=== PATIENT | male | born 1975 | race Caucasian/White ===

== ENCOUNTER → 2023-07-11 09:40 | Outpatient (CLI) | payer OTHER, SELFPAY ==
[2023-07-15 13:12] LABS: Pancreatic Elastase, Fecal <50 (>200)
== END ==
PROVIDERS: PCP Nurse Practitioner Family; Visit Provider Nurse Practitioner
DX: K90.9 Intestinal malabsorption, unspecified (principal); Z87.19 Personal history of other diseases of the digestive system
CPT/HCPCS: 82656

== ENCOUNTER 2023-11-22 09:20 | Outpatient (CLI) | payer OTHER, SELFPAY ==
--- NOTE | 2023-11-22 09:29 | NM_ITS ---
FINAL REPORT TECHNIQUE: 0.52 Millicuries of technetium 99m sulfur colloid was ingested with two whole eggs, 2 pieces of toast and water. CLINICAL HISTORY: DYSPEPSIA 9:45AM 0.52 MCI TC SULFUR COLLOID INJ INTO 2 WHOLE EGGS, 2 PC OF TOAST AND WATER FINDINGS: GASTRIC EMPTYING SCAN Static images show normal emptying of the stomach into the small bowel. Based on the time activity curve, the estimated half-emptying time is120 minutes. IMPRESSION: Somewhat elevated gastric emptying study. Reviewed, Interpreted and Dictated by Ronnell Nolan III, MD Transcribed by Mar Hernandez Authenticated and [facility]
[2023-11-22] MEDS: TC99M SULF.COLLOID;1 DOSE (UP TO 20 MCI) IV (09:48)
== END 2023-11-22 23:59 ==
LOC: RAD 09:21
PROVIDERS: PCP Nurse Practitioner Family; Visit Provider Nurse Practitioner Family
DX: K30 Functional dyspepsia (principal)
CPT/HCPCS: 78264; A9541

== ENCOUNTER 2023-12-02 10:45 | Outpatient (CLI) | payer OTHER, SELFPAY ==
--- NOTE | 2023-12-02 10:47 | CA_ITS ---
APPROVED REPORT EXAM: Comprehensive 2D, Doppler, and color-flow Echocardiogram Professional System Administrator: IBETH Collazo, RVS Ht: 5 ft 6 in Wt: 187lbs BSA: 1.94 BP: 128/74 mmHg Indications: HTN, HLD, DM, Palpitations 2D Dimensions Left Atrium 2.99 cm LA Volume 43.30 mL LA Volume Index 21.80 mL/m2 (M/F) 16-34 M-Mode Dimensions RVDd 1.73 cm (0.9-2.6) LA Diam 3.71 cm (1.9-4.0) LVDd 6.28 cm (3.5-5.7) LVDs 4.51 cm (3.5-5.7) IVSd 0.76 cm (0.6-1.1) PWd 0.93 cm (0.6-1.1) EF (Teich) 53.50% EPSs 0.65 cm FS 28.20% EDV (Teich) 199.70 mL TAPSE 2.38 (<1.7) ESV (Teich) 92.90 mL LV Diastology E Decel Time 163 (160-240 msec) E/A Ratio 1.26 MED A' 7.40 cm/s LAT A' 9.30 cm/s Aortic Valve VERNON Index 1.47 cm2/m2 AoV Peak Sudarshan. 112.0 (50-130 cm/s) AO Peak GR. 5.00 mmHg AO Mean GR. 2.50 (<5 mmHg) AO VTI 23.6 (18-25 cm) VERNON (VTI) 2.92 (2.5-4.5 cm2) Mitral Valve MV A Velocity 57.0 (40-130 cm/s) E/A Ratio 1.26 MV Mean Gr. 1.00 (<2mmHg) Pulmonary Valve PV Peak Velocity 86.0 (50-150 cm/s) Left Ventricle The left ventricle is normal size. The left ventricular systolic function is normal. The left ventricular ejection fraction is within the normal range. There is normal left ventricular wall thickness. There is normal LV segmental wall motion. The left ventricular diastolic function is normal. LVEF is 55%. Right Ventricle The right ventricle is normal size. The right ventricular systolic function is normal. Atria The left atrium size is normal. The right atrium size is normal. There is no Doppler evidence of interatrial shunt. Aortic Valve The aortic valve opens well. There is no aortic valvular stenosis. No aortic regurgitation is present. Mitral Valve The mitral valve is normal in structure. No evidence of mitral valve stenosis. There is no mitral valve regurgitation noted. Tricuspid Valve The tricuspid valve leaflets are thin and pliable. Trace tricuspid regurgitation. There is insufficient TR jet to estimate RVSP. Pulmonic Valve The pulmonary valve is normal in structure. Trace pulmonic regurgitation. Great Vessels The aortic root is normal in size. The ascending aorta is normal in size. IVC is normal in size and collapses >50% with inspiration. Pericardium There is no pericardial effusion. Other Information Study Quality: Fair Conclusion Normal biventricular systolic function. No significant valvular stenosis or regurgitation. Electronically signed by : Akosua Cramer MD 12/06/2023 21:48:59
== END 2023-12-02 23:59 ==
LOC: RT 10:46
PROVIDERS: PCP Nurse Practitioner Family; Visit Provider Nurse Practitioner Family
DX: R00.2 Palpitations (principal); E11.9 Type 2 diabetes mellitus without complications; Z87.19 Personal history of other diseases of the digestive system; Z79.84 Long term (current) use of oral hypoglycemic drugs
CPT/HCPCS: 93270; 93306

== ENCOUNTER 2024-01-06 08:54 | Outpatient (CLI) | payer OTHER, SELFPAY ==
[2024-01-06] VITALS (7 sets, daily range): BP systolic 114–162; BP diastolic 54–98; PULSE 60–72; RESP 16–18; TEMP 36.3; O2SAT 98–99; BMI 32.8
--- NOTE | 2024-01-06 08:54 | CT_ITS ---
APPROVED REPORT Instrument/Control Technician: CLINICAL INDICATION Chest Pain TECHNIQUE Image Acquisition: A 128 slice MDCT scanner ([employer]) was used for data acquisition. A noncontrast coronary calcium scan was performed. A CT attenuation threshold of 130 Hounsfield units (HU) was used for the detection of calcium in contiguous voxels of 1 sq mm in area to be counted as individual lesions. Bolus tracking in the ascending aorta with a threshold of 180 HU was performed. Immediately afterwards, ECG synchronized cardiac CT was then performed from the cardiac base to apex using retrospective gating with ECG tube current modulation. A total of 85 mL of Isovue 370 mg/mL contrast medium was administered at 5 mL/sec followed by a saline flush using a biphasic injection protocol. A tube voltage of 120 KVp was used. The patient received the following medications prior to the cardiac CT. 10 mg of intravenous metoprolol 0.8 mg of sublingual nitroglycerin The average heart rate at the time of acquisition was 65 bpm and regular. Image Reconstruction Transaxial images were reconstructed at 0.67 mm slide thickness. Data was reviewed interactively on an advanced workstation capable of 2 and 3-dimensional displays in all conventional reconstruction formats, including multiplanar reformations, maximum intensity projections, curved multiplanar reformations, and volume rendered reconstructions. When applicable, selected routine images describing the relevant coronary anatomy and pathology were saved and sent to PACS. Complications None Technical Quality Overall image quality was good. Coronary artery opacification was adequate. Total DLP (Dose-Length Product) is 1748.9 mGy-cm. The reported value represents the total of one or more individual components during the CT acquisition of this date and at this time, and as such, the same value may appear in more than one CT report depending on the interpreting/reporting physicians. COMPARISON None FINDINGS CT Coronary Calcium Scoring LMA (Left Main Artery) = 0 LAD (Left Anterior Descending) = 0 LCX (Left Coronary Circumflex) = 0 RCA (Right Coronary Artery) = 0 Total Calcium Score = 0 using the AJ-130 method. The interpretation of the calcium heart score is based on the following continuum*: 0 = no calcified plaque detected (risk of coronary artery disease is very low ??? less than 5%) 1-10 = calcium detected in extremely minimal levels (risk of coronary diseases is still low ??? less than 10%) 11-100 = mild levels of plaque detected with certainty (mild or minimal narrowing of heart arteries is likely) 101-400 = definite,at least moderate levels of plaque detected (relatively high risk of a heart attack within 3-5 years) >401-999 = extensive levels of plaque detected (high risk of heart attack, high levels of vascular disease are present, high likelihood of at least one significant coronary narrowing) *The calcium heart score quantifies the burden of coronary calcification/plaque in the coronary arteries. The calcium heart score is not able to evaluate the presence or burden of non-calcified (i.e. soft) plaque. There is no identifiable calcification in the aortic valve, mitral annulus or mitral valve, pericardium, or myocardium. Coronary CT Angiography The coronary arterial system is right dominant. Quantitative Stenosis Grading: Left Main (LM): The left main originates normally from the left sinus of Valsalva. The LM trifurcates into the left anterior descending artery, ramus intermedius, and left circumflex artery. The LM is patent with no evidence of atherosclerosis. Left Anterior Descending (LAD) and Diagonal Branches: The LAD gives off 2 diagonal branch(es). The LAD and its branches are patent with no evidence of atherosclerosis. 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 Ramus-intermedius (RI): The RI is patent. Left Circumflex (LCX) and Obtuse Marginals (OM): The LCX gives off 1 Obtuse Marginal (OM) branch. The LCX and its branches are patent with no evidence of atherosclerosis. Right Coronary Artery (RCA): The RCA originates normally from the right sinus of Valsalva. The RCA gives off a posterior descending artery (PDA) and posterolateral (PL) branches. The RCA and its branches are patent with no evidence of atherosclerosis. Non-Coronary Cardiac Findings: Analysis of the left ventricular (LV) structure and function was performed after 3-D reconstruction of the LV from axial images, with user-corrected automatic contouring for assessment of LV volumes and user-defined reconstruction from oblique planes for measurement of 3-D cardiac structure and function. -The left ventricle systolic function is normal. -There is no left atrial appendage filling defect. Two right pulmonary veins and two left pulmonary veins drain normally into the left atrium. -No pericardial thickening or calcification. -Central and branch pulmonary arteries in the [id number] are unremarkable. -Thoracic aorta within the visualized thoracic aortic-branches in the [id number] is unremarkable. Extracardiac Structures No significant extra-cardiac findings. Note, however, that this study is focused on the cardiac findings. IMPRESSION -Absence of coronary calcification with an Agatston score = 0 using the AJ-130 method. -No evidence of significant flow-limiting atherosclerosis of the coronary arteries. 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 -CAD-RADS 0. Management recommendations per ACC/AHA guidelines*, as clinically appropriate. *Recommendations: CAD RADS 0: Reassurance. Consider non-atherosclerotic causes of chest pain. CAD RADS 1: Consider non-atherosclerotic causes of chest pain. Consider preventive therapy and risk factor modification. CAD RADS 2: Consider non-atherosclerotic causes of chest pain. Consider preventive therapy and risk factor modification, particularly for patients with nonobstructive plaque in multiple segments. CAD RADS 3: Consider further functional testing. Consider symptom-guided anti-ischemic and preventive pharmacotherapy as well as risk factor modification per published guideline statements. CAD RADS 4A: Consider further functional testing or invasive coronary angiography with revascularization per published guideline statements. Consider symptom-guided anti-ischemic and preventive pharmacotherapy as well as risk factor modification per published guideline statements. CAD RADS 4B: Invasive coronary angiography recommended with revascularization per published guideline statements. Consider symptom-guided anti-ischemic and preventive pharmacotherapy as well as risk factor modification per published guideline statements. CAD RADS 5: Consider invasive angiography and/or viability assessment with revascularization per published guideline statements. Consider symptom-guided anti-ischemic and preventive pharmacotherapy as well as risk factor modification per published guideline statements. CRITICAL RESULT None COMMUNICATION Per this written report The coronary and cardiac findings of this CCTA were reviewed, reported, and signed by Javad Cramer MD (Director Payer) Conclusion Electronically signed by : Akosua Cramer MD 01/10/2024 11:11:12
[2024-01-06 09:43] LABS: Chloride 103 mmol/L (98-107)
[2024-01-06 09:44] LABS: POC Glucose,Bedside 103 (70-110)
[2024-01-06 09:44] LABS: Sodium 138 mmol/L (136-145)
[2024-01-06 09:47] LABS: Blood Urea Nitrogen 15 mg/dl (9-20); Calcium 9.3 mg/dl (8.4-10.2); Carbon Dioxide 30 mmol/L (22.0-30.0); Creatinine Clearance Estimated 120 mL/min (50-200); Estimated Glomerular Filt Rate 80 ml/min (>60); GFR (African American) 97 ML/MIN (>60); Glucose 117 mg/dl (74-100)
[2024-01-06] MEDS: NITROGLYCERIN 0.4MG SL TABLET 0.800000000000000044 MG SL (10:25)
[2024-01-06] MEDS: METOPROLOL TARTRATE 5MG/5ML VIAL *IVABRADINE+METOPROLOL REGIMINE 5 MG IV ×2 (10:30→10:35)
[2024-01-06] MEDS: IOPAMIDOL-370 (76%);100ML BOTTLE 85 ML IV (10:43)
[2024-01-06] MEDS: 0.9 % SODIUM CHLORIDE 50 ML VIAL IV (10:43)
[2024-01-06] MEDS: SODIUM CHLORIDE 0.9% 10ML SYR (RAD ONLY) 10 ML IV (10:43)
== END 2024-01-06 11:05 | disposition home or self-care (01) ==
PROVIDERS: PCP Nurse Practitioner Family; Visit Provider Nurse Practitioner Family
DX: R00.2 Palpitations (principal); R53.83 Other fatigue; E11.9 Type 2 diabetes mellitus without complications
CPT/HCPCS: 75571; 75574; 80048; 82962; Q9967

== ENCOUNTER 2024-04-19 16:14 | Outpatient (CLI) | payer OTHER, SELFPAY ==
[2024-04-19 17:56] LABS: Ferritin 19.6 ng/ml (17.9-464)
== END 2024-04-19 23:59 | disposition home or self-care (01) ==
LOC: LAB 16:14
PROVIDERS: PCP Nurse Practitioner Family; Visit Provider Specialist
DX: E83.10 Disorder of iron metabolism, unspecified (principal)
CPT/HCPCS: 36415; 82728

== ENCOUNTER 2024-05-18 15:22 | Emergency (ER) | payer OTHER, SELFPAY ==
[2024-05-18] VITALS (8 sets, daily range): BP systolic 128–138; BP diastolic 74–97; PULSE 64–80; RESP 13–16; TEMP 36.5–36.9; O2SAT 96–98; BMI 31.9
--- NOTE | 2024-05-18 15:30 | HMH.EDGENADL ---
Discharge Plan Disposition Patient Disposition: Home, Self-Care Condition: Good Prescriptions Prescriptions: No Action aspirin 81 mg tablet,chewable 1 tab PO DAILY dexlansoprazole [Dexilant] 60 mg capsule,biphase delayed releas 60 mg PO DAILY Patient Comments: TAKE 1 CAPSULE BY MOUTH ONCE A DAY. losartan 50 mg tablet 50 mg PO DAILY Patient Comments: TAKE 1 TABLET BY MOUTH ONCE A DAY. mupirocin 2 % ointment 1 applic topical DAILY Patient Comments: APPLY A SMALL AMOUNT TO THE AFFECTED AREA THREE TIMES DAILY (DME) OneTouch Ultra Test Strip See Rx Instructions .ROUTE .MEDSUPPLY Qty: 10 Patient Comments: CHECK TWICE DAILY Rx Instructions: As directed (DME) lancets [AppMesh Delica Plus Lancet] 33 gauge misc See Rx Instructions .ROUTE .MEDSUPPLY Qty: 100 Rx Instructions: As directed nystatin [Nystop] 100,000 unit/gram powder 100,000 unit topical DAILY Patient Comments: APPLY TO THE AFFECTED AREA(S) BY TOPICAL ROUTE 2 TIMES PER DAY Xigduo XR 5-1,000 mg tablet, IR - ER, biphasic 24hr 5 - 1,000 tab PO DAILY latanoprost 0.005 % drops 1 drp Eye-Both BID Patient Comments: INSTILL 1 DROP IN BOTH EYES AT BEDTIME testosterone [AndroGel] 20.25 mg/1.25 gram (1.62 %) gel in metered-dose pump 4 pump topical DAILY Patient Comments: APPLY FOUR PUMPS TO SKIN DAILY DIRECTED. metoprolol succinate 50 mg tablet extended release 24 hr 50 mg PO DAILY epinephrine 0.3 mg/0.3 mL auto-injector 0.3 ml IM ONCE PRN (Reason: allergies) Patient Comments: INJECT 1 PEN INJECTOR INTRAMUSCULARLY NEEDED INJECT INTRAMUSCULARLY INTO OUTER THIGH FOR SEVERE ALLERGIC REACTION, CALL 911 AFTER USE fexofenadine [Marta Allergy] 60 mg tablet 60 mg PO HS cholecalciferol (vitamin D3) 1,250 mcg (50,000 unit) capsule 1,250 mcg PO WEEKLY Patient Comments: TAKE ONE CAPSULE BY MOUTH EVERY WEEK. Creon 36,000-114,000- 180,000 unit capsule,delayed release(DR/EC) 1 cap PO QID Qty: 120 5RF Rx Instructions: administer with meals and/or snacks, decrease fatty food intake (DME) lancing device with lancets [AppMesh Delica Plus Lanc Dev] Kit See Rx Instructions .ROUTE .MEDSUPPLY Qty: 1 Patient Comments: USE DIRECTED Rx Instructions: As directed Referrals Follow up/Referrals: Marian Estrella APRN [Primary Care Provider] - See instructions Activity Restrictions/Add. Instructions Additional Instructions/Restrictions: As we discussed, your labs and CT scans did not show any abnormal findings with the exception of some evidence that you may have gotten dehydrated. Given that you have had no further episodes of the confusion that brought you in today, you are stable for discharge at this time. Please follow-up with your primary care doctor. I recommend you check your blood sugar throughout the day and make sure you are having protein and fruit throughout the day as well as staying hydrated. Please return with any new or worsening symptoms. Clinical Impressions Clinical Impression: Altered awareness, transient Print Language Print Language: Citizen Of [place] Discharge ED Provider: Derrell Greer General Adult HPI General Chief complaint: Neuro Symptoms/Deficit Stated complaint: possible stroke Time Seen by Provider: 05/18/24 15:30 History of Present Illness HPI narrative: He presents with a chief complaint of blurry vision that [place] around 1 PM [place] He describes his eyes as feeling foggy when he put on his sunglasses. He also reports shuffling his feet and tripping multiple times, including going into PCP office and in the parking lot. He denies any weakness or numbness in his hands and has no history of migraines. He has a history of diabetes and reports a blood sugar level of 120 upon waking up, which is normal for him. He had a glass of regular tea in the morning, and his blood sugar was 200 at [place]. He is on blood pressure medication and takes a baby aspirin daily. He did not take an additional aspirin today. He has a known disc bulge in his neck and has been engaging in physical activity, such as lifting a hundred-pound calf. He denies any strenuous activity that he has not done in the past 10 days. He also has a history of sleep apnea but no known neurological issues. His mother has had multiple mini-strokes, and his sister experiences grand mal seizures. Additional details: - He broke the door handle off his truck while trying to get in. - He has been under stress, dealing with sick calves and visiting the vet all morning. - He has not eaten food today, only having a glass of regular tea. Please note that above description of symptoms, in this electronic medical record under categorization of recalled from ER triage doctor by RN are reflective of an initial nursing assessment, however, is not reflective of my full history and physical exam that was personally taken and clarified. Consequentially, this preceding description of symptoms, which may include the patient's categorized chief complaint in the EMR, do not reflect my personal clinical impression, and the ultimate description of history of present illness and patient stated complaints should be deferred to this section of the note. Unless stated otherwise or congruent with this section of the note, additional signs, symptoms, or incongruence should be interpreted as inaccurate with my clinical impression. Related Data Home Medications ?Medication ?Instructions ?Recorded ?Confirmed aspirin 81 mg chewable tablet 1 tab PO DAILY 07/07/23 04/19/24 blood sugar diagnostic ([employer] #10 ea 07/07/23 04/19/24 Ultra Test strips) dapagliflozin propaned 5 5 - 1,000 tab PO DAILY 07/07/23 04/19/24 mg-metformin ER 1,000 mg tablet, ext rel 24hr (Xigduo XR) dexlansoprazole 60 mg 60 mg PO DAILY 07/07/23 04/19/24 capsule,biphase delayed release (Dexilant) lancets 33 gauge ([employer] Joaquinica #100 ea 07/07/23 04/19/24 Plus Lancet) latanoprost 0.005 % eye drops 1 drp Eye-Both BID 07/07/23 04/19/24 losartan 50 mg tablet 50 mg PO DAILY 07/07/23 04/19/24 metoprolol succinate 50 mg 50 mg PO DAILY 07/07/23 04/19/24 tablet,extended release 24 hr mupirocin 2 % topical ointment 1 applic topical DAILY 07/07/23 04/19/24 nystatin 100,000 unit/gram topical 100,000 unit topical DAILY 07/07/23 04/19/24 powder (Nystop) testosterone (AndroGel) 4 pump topical DAILY 07/07/23 04/19/24 epinephrine 0.3 mg/0.3 mL 0.3 ml IM ONCE PRN allergies 11/17/23 04/19/24 injection, auto-injector lancing device with lancets kit #1 ea 01/26/24 04/19/24 (AppMesh Delica Plus Lancing Device kit) cholecalciferol (vitamin D3) 1,250 1,250 mcg PO WEEKLY 02/27/24 04/19/24 mcg (50,000 unit) capsule fexofenadine 60 mg tablet (Marta 60 mg PO HS 02/27/24 04/19/24 Allergy) Previous Rx's ?Medication ?Instructions ?Recorded pghwfq-dzqduubu-ojigwor 1 cap PO QID EPI #120 caps 02/27/24 36,000-114,000-180,000 unit capsule,delay rel (Creon) Allergies Allergy/AdvReac Type Severity Reaction Status Date / Time omeprazole [From Prilosec] Allergy Mild Hives Verified 04/19/24 14:46 [facility] Disclaimer: The information contained in this section may have been updated after the patient was seen, as this information can be updated by other users. Medical History (Updated 05/18/24 @ 19:34 by Derrell Greer MD) Fatigue JESSICA (obstructive sleep apnea) Hyperlipidemia Palpitations Hypertension Bulging of cervical intervertebral disc Pneumonia due to COVID-19 virus Glaucoma GERD (gastroesophageal reflux disease) Diabetes Surgical History Hx of nasal septoplasty Hx of cholecystectomy Family History Brother Asthma Hyperlipidemia Hypertension Mother Cancer Hyperlipidemia Hypertension Stroke Sister Hypertension Stroke Thyroid disorder Social History Smoking Status: Never smoker second hand exposure: No alcohol intake: never substance use type: denies use current occupational status: employed Travel in the last 8 weeks: None adopted: No caregiver/support person: No foster care: No household members: spouse housing: house lives independently: Yes marital status: ROS Obtained: Yes other As per HPI Physical Exam General General appearance: alert and in no apparent distress Head Head exam: atraumatic and normocephalic Eye Eye exam: Present normal appearance Neck Neck exam: Present normal inspection Chest Chest inspection: Present normal inspection and symmetric chest wall rise Respiratory Respiratory exam: Present normal lung sounds bilaterally; Absent respiratory distress Cardiovascular Cardiovascular exam: Present regular rate and normal rhythm Abdominal Exam Abdominal exam: Present soft Neurological Exam Neurological exam: Present alert and oriented X3 Expanded Neurological Exam Patient oriented to: Present person, place and time Speech: Present fluid speech Cranial nerves: Normal: EOM function (II, III, IV, ), facial sensation (V), facial palsy (VII), spinal accessory function (XI) and tongue deviation (XII) Cerebellar function: Normal: finger to nose and heel to stevenson Cerebellar function: normal gait Motor strength - LUE: 5/5 Motor strength - RUE: 5/5 Motor strength - LLE: 5/5 Motor strength - RLE: 5/5 Upper motor neuron exam: Normal: sultana neglect Psychiatric Psychiatric exam: Present normal affect and normal mood Skin Skin exam: Present warm and dry Medical Decision Making Medical Records Medical records reviewed: Yes I reviewed the patient's medical records. Carlos Inquiry Pt receiving controlled substance: No Vital Signs: 05/18/24 15:22 05/18/24 16:14 05/18/24 16:30 Temperature 98.5 F Temperature Source Oral Pulse Rate 74 73 Pulse Rate [Left Radial] 79 Respiratory Rate 13 Blood Pressure 132/76 128/79 Blood Pressure [Right Arm] 137/84 Blood Pressure Mean [Right Arm] 101 Blood Pressure Source Blood Pressure Position 02 Sat by Pulse Oximetry 97 98 96 Oxygen Delivery Method Room Air 05/18/24 17:00 05/18/24 17:30 05/18/24 18:31 Temperature Temperature Source Pulse Rate 64 79 73 Pulse Rate [Left Radial] Respiratory Rate Blood Pressure 132/82 135/97 H 128/74 Blood Pressure [Right Arm] Blood Pressure Mean [Right Arm] Blood Pressure Source Blood Pressure Position 02 Sat by Pulse Oximetry 97 97 98 Oxygen Delivery Method 05/18/24 19:00 05/18/24 19:35 Temperature 97.7 F Temperature Source Oral Pulse Rate 67 80 Pulse Rate [Left Radial] Respiratory Rate 16 Blood Pressure 135/79 138/77 Blood Pressure [Right Arm] Blood Pressure Mean [Right Arm] Blood Pressure Source Automatic Cuff Blood Pressure Position Sitting 02 Sat by Pulse Oximetry 98 Oxygen Delivery Method Lab Data Lab Results 05/18/24 15:26: WBC 7.6, RBC 4.99, Hgb 15.9, Hct 50.3, MCV 100.9 H, MCH 31.8 H, MCHC 31.5 L, RDW 13.2, Plt Count 208, MPV 8.1, Neut % (Auto) 63.0, Lymph % (Auto) 24.4, Mills % (Auto) 6.4, Eos % (Auto) 5.0, Baso % (Auto) 1.1, Neut # (Auto) 4.8, Lymph # (Auto) 1.9, Mills # (Auto) 0.5, Eos # (Auto) 0.4, Baso # (Auto) 0.1, PT 10.3, INR 0.91, Sodium 139, Potassium 3.9, Chloride 105, Carbon Dioxide 25, Anion Gap 12.9, BUN 18, Creatinine 1.00, Estimated Creat Clear 117, Estimated GFR 80, Est GFR ( Amer) 97, Glucose 138 H, Calcium 9.3, Magnesium 1.9, Total Bilirubin 0.7, AST 51, ALT 94 H, Alkaline Phosphatase 91, Troponin I < 0.01, Total Protein 7.3, Albumin 4.5, Globulin 2.8, Albumin/Globulin Ratio 1.6 05/18/24 15:40: VBG pH 7.34, VBG pCO2 44.3, VBG pO2 39.0, VBG HCO3 23.4, VBG Total CO2 24.7, VBG O2 Saturation 69.3, VBG Base Excess -2.4, VBG Lactic Acid 2.5 H 05/18/24 18:30: Troponin I < 0.01 05/18/24 15:26 05/18/24 15:26 Orders (Tests/Meds): ED MEDICATIONS Discontinued Medications Generic Name Dose Route Start Last Admin Trade Name Freq PRN Reason Stop Dose Admin Sodium Chloride 1,000 mls @ 999 mls/hr 05/18/24 15:31 05/18/24 16:11 Sod Chlor 0.9% 1000ml Bag IV 05/18/24 16:31 999 mls/hr .Q1H1M ONE Administration Iopamidol 80 ml 05/18/24 16:02 05/18/24 16:03 Iopamidol-370 (76%);100ml Bottle IV 05/18/24 16:03 80 ml ONCE ONE Administration Sodium Chloride 10 ml 05/18/24 16:02 05/18/24 16:03 Sodium Chloride 0.9% 10ml Syr (Rad Only) IV 05/18/24 16:03 10 ml ONCE ONE Administration Sodium Chloride 50 ml 05/18/24 16:02 05/18/24 16:02 0.9 % Sodium Chloride 50 Ml Vial IV 05/18/24 16:03 50 ml ONCE ONE Administration ORDERS Category Date Time Status CT angio head Stat Cat Scan 05/18/24 15:[address] angio neck Stat Cat Scan 05/18/24 15:[address] head/brain wo con Stat Cat Scan 05/18/24 15:31 Completed CBC w/Auto Diff [Complete Blood Count Auto Diff] Stat Lab 05/18/24 15:26 Completed CMP [Comprehensive Metabolic Panel] Stat Lab 05/18/24 15:26 Completed MAG [Magnesium] Stat Lab 05/18/24 15:26 Completed PT INR [Prothrombin Time INR] Stat Lab 05/18/24 15:26 Completed Troponin I Q3H Lab 05/18/24 15:26 Completed Troponin I Q3H Lab 05/18/24 18:30 Completed VBG [Venous Blood Gas] Stat RT 05/18/24 15:40 Completed Medical Decision Narrative: Patient with history and exam per above presenting for evaluation of transient altered mental status, confusion, reported gait abnormality Diagnoses considered include stroke, TIA, hypoglycemia, hypoxemia, hypovolemia, hypotension, ACS, among others. Patient exhibits no neurologic deficits at this time, patient's family member feels patient's symptoms have improved. Patient denies any acute complaints. ED workup and treatment included: ED MEDICATIONS Discontinued Medications Generic Name Dose Route Start Last Admin Trade Name Freq PRN Reason Stop Dose Admin Sodium Chloride 1,000 mls @ 999 mls/hr 05/18/24 15:31 05/18/24 16:11 Sod Chlor 0.9% 1000ml Bag IV 05/18/24 16:31 999 mls/hr .Q1H1M ONE Administration Iopamidol 80 ml 05/18/24 16:02 05/18/24 16:03 Iopamidol-370 (76%);100ml Bottle IV 05/18/24 16:03 80 ml ONCE ONE Administration Sodium Chloride 10 ml 05/18/24 16:02 05/18/24 16:03 Sodium Chloride 0.9% 10ml Syr (Rad Only) IV 05/18/24 16:03 10 ml ONCE ONE Administration Sodium Chloride 50 ml 05/18/24 16:02 05/18/24 16:02 0.9 % Sodium Chloride 50 Ml Vial IV 05/18/24 16:03 50 ml ONCE ONE Administration ORDERS Category Date Time Status CT angio head Stat Cat Scan 05/18/24 15:[address] angio neck Stat Cat Scan 05/18/24 15:[address] head/brain wo con Stat Cat Scan 05/18/24 15:31 Completed CBC w/Auto Diff [Complete Blood Count Auto Diff] Stat Lab 05/18/24 15:26 Completed CMP [Comprehensive Metabolic Panel] Stat Lab 05/18/24 15:26 Completed MAG [Magnesium] Stat Lab 05/18/24 15:26 Completed PT INR [Prothrombin Time INR] Stat Lab 05/18/24 15:26 Completed Troponin I Q3H Lab 05/18/24 15:26 Completed Troponin I Q3H Lab 05/18/24 18:30 Completed VBG [Venous Blood Gas] Stat RT 05/18/24 15:40 Completed Labs were independently interpreted by me, significant for no acute findings Imaging was independently visualized and interpreted by me, significant for no acute findings Please refer to radiology report for full details. Patient had no further symptoms upon repeat evaluation. He was able to tolerate p.o. intake. Patient and family member expressed comfort with discharge at this time. He will require outpatient follow-up and already takes aspirin 81 mg. I believe symptoms are most likely attributable to hypoglycemia in the setting of 2 skipped meals today as well as working outside in the heat. TIA additionally on the differential however less likely based on history of present illness. I discussed my clinical impression with patient and answered all questions. At this time, the evidence for any other entities in the differential is insufficient to warrant any further testing or ED observation. This was explained to the patient. The patient was advised that persistent or worsening symptoms require further evaluation. Critical Care Critical Care Time Critical Care Time: No
--- NOTE | 2024-05-18 15:31 | CT_ITS ---
FINAL REPORT TECHNIQUE: Thin-section axial CT with IV contrast supplemented with multi planar reconstruction under CT angiogram protocol was performed of the neck. This study was performed technique to keep radiation doses as low as reasonably achievable, (ALARA). NASCET criteria was utilized during interpretation. CLINICAL HISTORY: transient AMS, confusion, gait abnormality, resolv COMPARISON: None FINDINGS: Aortic arch: Arch shows no significant narrowing. Great vessel origins are widely patent. Right carotid: No significant stenosis is seen at the cervical common or internal carotid artery. Left carotid: No significant stenosis is seen at the cervical common or internal carotid artery. Vertebrals: The right vertebral artery is dominant. No significant stenosis is present. IMPRESSION: No evidence of significant stenosis or major branch occlusion. Reviewed, Interpreted and Dictated by Ronnell Nolan III, MD Transcribed by Jennifer Osullivan Authenticated and [facility]
--- NOTE | 2024-05-18 15:31 | CT_ITS ---
FINAL REPORT CLINICAL HISTORY: transient AMS, confusion, gait abnormality, resolv COMPARISON: None FINDINGS: Axial images of the head were obtained without contrast. Coronal and sagittal reformatted images were also obtained.This study was performed with techniques to keep radiation doses as low as reasonably achievable (ALARA). Individualized dose reduction techniques using automated exposure control or adjustment of mA and/or kV according to the patient's size were employed. There is no evidence of intracranial hemorrhage or mass. The ventricular size is within normal limits. There is no evidence of shift of the midline structures. No abnormal extra axial fluid collection is identified. No skull abnormality is seen on the bone window images. IMPRESSION: No acute intracranial abnormality. Reviewed, Interpreted and Dictated by Ronnell Nolan III, MD Transcribed by Jennifer Osullivan Authenticated and [facility]
--- NOTE | 2024-05-18 15:31 | CT_ITS ---
FINAL REPORT TECHNIQUE: Thin section axial CT with IV contrast supplemented with multiplanar reconstruction under CT angiogram protocol. 3-D reconstructions were performed. This study was performed with techniques to keep radiation doses as low as reasonably achievable (ALARA). Individualized dose reduction techniques using automated exposure control or adjustment of mA and/or kV according to the patient's size were employed. CLINICAL HISTORY: transient AMS, confusion, gait abnormality, resolv COMPARISON: None FINDINGS: The distal vertebral, basilar and distal internal carotid arteries have an unremarkable appearance. No aneurysm is seen. Major intracranial vessels are patent without significant stenosis. IMPRESSION: No major intracranial vascular abnormality identified. Reviewed, Interpreted and Dictated by Ronnell Nolan III, MD Transcribed by Jennifer Osullivan Authenticated and [facility]
[2024-05-18 15:41] LABS: Lactate Venous 2.5 mmol/L (0.4-2.0); VBG Base Excess -2.4 mmol/L (-2.4-2.3); VBG HCO3 23.4 mmol/L (23-30); VBG Oxygen Saturation 69.3 % (50-70); VBG PCO2 44.3 mmol/L (35-51); VBG PH 7.34 mmol/L (7.31-7.41); VBG Total CO2 24.7 mmol/L (23-27)
[2024-05-18 15:44] LABS: Basophils # 0.1 K/mm3 (0-0.2); Basophils % 1.1 % (0.1-2.0); Eosinophils # 0.4 K/mm3 (0.0-0.4); Hematocrit 50.3 % (42.0-52.0); Hemoglobin 15.9 g/dL (14.1-18.0); Lymphocytes # 1.9 K/mm3 (0.7-4.5); Lymphocytes % 24.4 % (10-50); Mean Corpuscular HGB Conc 31.5 g/dL (31.8-35.4); Mean Corpuscular Hemoglobin 31.8 pg (27.0-31.2); Mean Corpuscular Volume 100.9 fl (80-94); Mean Platelet Volume 8.1 fl (7.4-10.4); Monocytes # 0.5 K/mm3 (0.1-1.0); Monocytes % 6.4 % (1.7-9.3); Neutrophils # 4.8 K/mm3 (1.8-7.8); Platelet Count 208 K/mm3 (142-424); Red Blood Count 4.99 M/mm3 (4.60-6.20); Red Cell Distribution Width 13.2 % (11.5-17.5); White Blood Count 7.6 K/mm3 (4.8-10.8)
[2024-05-18 15:47] LABS: Albumin Level 4.5 g/dl (3.5-5.0); Chloride 105 mmol/L (98-107); Potassium 3.9 mmoL/L (3.5-5.1); Sodium 139 mmol/L (136-145)
[2024-05-18 15:49] LABS: Blood Urea Nitrogen 18 mg/dl (9-20); Creatinine Clearance Estimated 117 mL/min (50-200); Estimated Glomerular Filt Rate 80 ml/min (>60); GFR (African American) 97 ML/MIN (>60); Magnesium 1.9 mg/dl (1.6-2.3)
[2024-05-18 15:50] LABS: Alanine Aminotransferase 94 U/L (12-78); Albumin/Globulin Ratio 1.6 (1.1-1.8); Alkaline Phosphatase 91 U/L (38-126); Anion Gap 12.9 mEq/L (5-15); Aspartate Amino Transferase 51 U/L (17-59); Bilirubin,Total 0.7 mg/dl (0.2-1.3); Calcium 9.3 mg/dl (8.4-10.2); Carbon Dioxide 25 mmol/L (22.0-30.0); Globulin 2.8 g/dL (1.3-3.2); Glucose 138 mg/dl (74-100); INR 0.91 (0.9-1.1); Prothrombin Time 10.3 seconds (10.1-12.5); Total Protein,Serum 7.3 g/dl (6.3-8.2)
[2024-05-18] MEDS: 0.9 % SODIUM CHLORIDE 50 ML VIAL IV (16:02)
[2024-05-18 16:03] LABS: Troponin I < 0.01 ng/ml (0.00-0.034)
[2024-05-18] MEDS: IOPAMIDOL-370 (76%);100ML BOTTLE 80 ML IV (16:03)
[2024-05-18] MEDS: SODIUM CHLORIDE 0.9% 10ML SYR (RAD ONLY) 10 ML IV (16:03)
[2024-05-18] MEDS: 0.9 % SODIUM CHLORIDE 1000ML 1,000 ML 999 ML IV (16:11)
--- NOTE | 2024-05-18 18:12 | ECG_ITS ---
APPROVED REPORT Exam: Resting ECG HR:70 bpm ECG Measurements Heart Rate [address] 157 P 52 QRSd 91 QRS 71 QT 400 T 18 QTc 421 Conclusion SINUS RHYTHM INCOMPLETE RIGHT BUNDLE BRANCH BLOCK [90+ ms QRS DURATION, TERMINAL R IN V1/V2, 40+ ms S IN I/aVL/V4/V5/V6] BORDERLINE ECG No STEMI Electronically signed by : ASIF ANDERSON, 05/19/2024 06:49:44
--- NOTE | 2024-05-18 18:15 | PC.NURSE ---
called dietary to obtain a tray
[2024-05-18 19:14] LABS: Troponin I < 0.01 ng/ml (0.00-0.034)
[2024-05-18 19:41] LABS: Reflex Lactic Add Lactic Reflex
== END 2024-05-18 19:41 | disposition home or self-care (01) ==
PROVIDERS: Emergency Provider Emergency Medicine; PCP Nurse Practitioner Family
DX: R41.82 Altered mental status, unspecified (principal); H53.8 Other visual disturbances; E11.39 Type 2 diabetes mellitus with other diabetic ophthalmic complication; H42 Glaucoma in diseases classified elsewhere; I10 Essential (primary) hypertension; E78.5 Hyperlipidemia, unspecified
CPT/HCPCS: 70450; 70496; 70498; 80053; 82803; 83735; 84484; 85025; 85610; 93005; 96360; 99285; J7030; Q9967

== ENCOUNTER 2024-10-03 07:39 | Outpatient (CLI) | payer OTHER, SELFPAY ==
--- NOTE | 2024-10-03 07:40 | CT_ITS ---
FINAL REPORT TECHNIQUE: CT examination of the abdomen and pelvis was performed pre and post intravenous contrast administration using axial images, followed by coronal and sagittal reconstructions. This study was performed with techniques to keep radiation doses as low as reasonably achievable (ALARA). Individualized dose reduction techniques using automated exposure control or adjustment of mA and/or kV according to the patient's size were employed. CLINICAL HISTORY: attention pancreas, patient with EPI COMPARISON: None FINDINGS: CT ABDOMEN AND PELVIS WITH AND WITHOUT CONTRAST: Scarring versus atelectasis is present in the lung bases. There is moderate fatty infiltration of the liver. The gallbladder is surgically absent. The spleen is unremarkable. The adrenals are normal. The pancreas is unremarkable, specifically no evidence of mass or peripancreatic inflammatory change is seen. The kidneys enhance appropriately. Precontrast images demonstrate no nephrolithiasis or significant vascular calcifications. There are a few scattered diverticula present in the descending and sigmoid portions of the colon without evidence of acute inflammatory change. No free fluid or masses identified in the pelvis. IMPRESSION: Moderate fatty infiltration of the liver, gallbladder surgically absent. No evidence of pancreatic mass or peripancreatic inflammatory changes seen. Reviewed, Interpreted and Dictated by Kashmir Diaz MD Transcribed by Jennifer Osullivan Authenticated and [facility]
[2024-10-03 08:00] LABS: Blood Urea Nitrogen 24 mg/dl (9-20); Estimated Glomerular Filt Rate 50 ml/min (>60); GFR (African American) 61 ML/MIN (>60)
[2024-10-03] MEDS: SODIUM CHLORIDE 0.9% 10ML SYR (RAD ONLY) 10 ML IV (08:27)
[2024-10-03] MEDS: IOPAMIDOL-370 (76%);100ML BOTTLE 75 ML IV (08:28)
== END 2024-10-03 23:59 | disposition home or self-care (01) ==
LOC: RAD 07:40
PROVIDERS: PCP Nurse Practitioner Family; Visit Provider Nurse Practitioner Family
DX: K86.81 Exocrine pancreatic insufficiency (principal)
CPT/HCPCS: 36415; 74178; 82565; 84520; Q9967

== ENCOUNTER 2025-03-19 09:37 | Outpatient (CLI) | payer OTHER, SELFPAY ==
--- NOTE | 2025-03-19 09:41 | XR_ITS ---
FINAL REPORT CLINICAL HISTORY: Left Knee Pain FINDINGS: LEFT KNEE 3 views of the left knee were obtained. There is no acute fracture or dislocation. Visualized joint spaces are normally aligned. Soft tissues are unremarkable. IMPRESSION: No acute bony abnormality. Reviewed, Interpreted and Dictated by Kashmir Diaz MD Transcribed by Amber Hector Authenticated and [facility]
--- OUTSIDE RECORDS SUMMARY | 2025-03-19 09:44 | XMS_ITS | Clinical Summary ---
Author Organization [facility] Address [address] [place] [address] Care Team Providers Care Welding Pantograph Machine Operator Name Role Phone Justyna Wright END USER CONSULTANT Primary Care Provider [phone] Allergies No known active allergies Medications Aspirin Low Dose 81 MG chewable tablet 11/03/2020 Act marck Dexilant [address] capsule Take 1 capsule by mouth 1 (one) time each day. 05/12/2021 Active fluticasone (Flonase) 50 MCG/ACT nasal spray INSTILL ONE (1) SPRAY IN EACH NOSTRIL EVERY DAY FOR 7 DAYS 03/04/2021 Active OneTouch Ultra test strip CHECK THREE TIMES A DAY 05/20/2021 Active Lancets (OneTouch Delica Plus [id number]) [facility] 10/18/2020 Act marck losartan (Cozaar) 50 MG tablet Take 50 mg by mouth 1 (one) time each day. 04/01/2021 Active metFORMIN XR (Glucophage-XR) 500 MG 24 hr tablet TAKE (1) TABLET BY MOUTH TWICE A DAY. 04/13/2021 Active metoprolol tartrate (Lopressor) 50 MG tablet TAKE (1) TABLET BY MOUTH TWICE A DAY. 04/01/2021 Active Promethazine-Co deine 6.25-10 MG/5ML solution TAKE FIVE (5) ML EVERY SIX (6) HOURS BY ORAL ROUTE NEEDED FOR FIVE (5) DAYS. 05/21/2021 Active Mucinex D 60-600 MG 12 hr tablet TAKE ONE (1) TABLET TWICE A DAY BY ORAL ROUTE FOR 7 DAYS. 05/12/2021 Active AndroGel Pump 20.25 MG/ACT (1.62%) gel APPLY 4 PUMPS TO SKIN DIRECTED EACH DAY FOR 30 DAYS. 05/25/2021 Active meloxicam (Mobic) 15 MG tabletIndicatio ns:Cervical radiculopathy,F oraminal stenosis of cervical region Take 1 tablet (15 mg total) by mouth 1 (one) time each day if needed for moderate pain. 30 tablet 1 06/12/2021 Active glucose blood test strip 09/09/2020 Active lancets (OneTouch Delica Lancets 33G) misc USE DIRECTED TO CHECK BLOOD SUGAR 3 TIMES A DAY 02/21/2018 Active Glucose Blood (ONETOUCH ULTRA BLUE ) USE DIRECTED TO CHECK BLOOD SUGAR 3 TIMES A DAY 02/04/2018 Active methocarbamol (Robaxin) 500 MG tabletIndicatio ns:Cervical radiculopathy,F oraminal stenosis of cervical region TAKE 1 TABLET BY MOUTH EVERY EVENING IF NEEDED FOR MUSCLE SPASMS 20 tablet 07/08/2021 Active Family History Medical History Relation Name Comments Diabetes Other 1 Hypertension Other 2 Other cancer Other 3 Relation Name Status Comments Other 1 Other 2 Other 3 Social History Tobacco Use Types Packs/Day Years Used Date Smoking Tobacco: Never Smokeless Tobacco: Never Alcohol Use Standard Drinks/Week Comments No 0 (1 standard drink = 0.6 oz pur e alcohol) PHQ-2 Answer Date Recorded Patient Health Questionnaire-2 Score 0 07/03/2021 Sex and Gender Information Value Date Recorded Sex Assigned at Not on file Legal Sex Male 6:04 PM EDT Gender Identity Not on file Sexual Orientation Not on file Last Filed Vital Signs Vital Sign Reading Time Taken Comments Blood Pressure 134/73 07/03/2021 9:15 AM EDT Pulse 65 07/03/2021 9:15 AM EDT Temperature - - Respiratory Rate - - Oxygen Saturation 97% 07/03/2021 9:15 AM EDT Inhaled Oxygen Concentration - - Weight 94.1 kg (207 lb 7.3 oz) 07/03/2021 9:15 A M EDT Height 170.2 cm (5' 7 ) 07/03/2021 9:15 AM EDT Body Mass Index 32.49 07/03/2021 9:15 AM EDT Plan of Treatment Health Maintenance Due Date Last Done Comments [facility]-Depression Screening 1977 [facility]-Infant/Child/Adol SDOH Screenings 1977 [facility]- SDOH Screenings 1995 [facility]-Adult SDOH Screenings 1995 [facility]-Hepatitis B Vaccines (1 of 3 - 19+ 3-dose series) 1996 [facility]-DTaP,Tdap,and Td Vaccine s (1 - Tdap) 01/12/2002 01/11/2002 CT Colonography 2022 Colonoscopy 2022 FIT-DNA 2022 FIT 2022 FOBT 2022 Sigmoidoscopy 2022 [facility]-Colorectal Cancer Screening 2022 [id number] Vaccine (1 - 2023- season) 2024 [facility]-Influenza Vaccine (#1) 05/13/202506/05, 08/23/2018 [facility]-Zoster Vaccines (1 of 2) 2027 [facility]-Hepatitis A Vaccines Aged Out 019, 05/01/2018 No longer eligible based on patient's age to complete this topic [facility]-Pneumococcal Vaccine: Pediatrics (0 to 5 Years) and At-Risk Patients (6 to 49 Years) Aged Out 08/21/2019 No longer eligible b ased on patient's age to complete this topic HPV Vaccines Aged Out No longer eligi ble based on patient's age to complete this topic [facility]-HIB Vaccines Aged Out No longer e ligible based on patient's age to complete this topic [facility]-IPV Vaccines Aged Out No longer e ligible based on patient's age to complete this topic [facility]-Rotavirus Vaccines Aged Out No lo nger eligible based on patient's age to complete this topic Insurance AETNA [facility] MEDICAID Care Teams Welding Pantograph Machine Operator Relationship Specialty Start Date End Date Justyna Wright APRN [address] [place] [address] PCP - General 06/12/21
--- OUTSIDE RECORDS SUMMARY | 2025-03-19 09:44 | XMS_ITS | Clinical Summary ---
Author Organization [facility] Address [address] [place] [address] Phone Care Team Providers Care Broke Beater Name Role Phone Jozef Moran MD Primary Care Provider [phone] Allergies No known active allergies Medications metoprolol (LOPRESSOR) 50 mg Oral Tablet Take 50 mg by mouth 2 times daily (with meals). 4 8 Active DEXILANT 60 mg Oral Cap, Delayed Rel., Multiphasic 8 Active losartan (COZAAR) 50 mg Oral Tablet Take 50 mg by mouth daily. 4 8 Active ONETOUCH ULTRA BLUE TEST STRIP Misc Strip USE DIRECTED TO CHECK BLOOD SUGAR 3 TIMES A DAY 5 8 Active aspirin (ASPIRIN) 81 mg Oral Tablet, ChewableIndicati ons:Type 2 diabetes mellitus without complication, without long-term current use of insulin (HCC) Take 1 Tab by mouth daily. 30 Tab 11 9 Active metFORMIN XR (GLUCOPHAGE-XR) 500 mg Oral Tablet Sustained Release 24 hrIndications:Ty pe 2 diabetes mellitus without complication, without long-term current use of insulin (HCC) Take 1 Tab by mouth 2 times daily (with meals). 60 Tab 11 9 Active diclofenac (VOLTAREN) 50 mg Oral Tablet, Delayed Release (E.C.) 9 Active colestipol (COLESTID) 1 gram Oral TabletIndication s:Postcholecyste ctomy diarrhea Take 1 Tab by mouth 2 times daily. 60 Tab 11 9 Active Social History Tobacco Use Types Packs/Day Years Used Date Smoking Tobacco: Never Smokeless Tobacco: Never Alcohol Use Standard Drinks/Week Comments No 0 (1 standard drink = 0.6 oz pur e alcohol) Sex and Gender Information Value Date Recorded Sex Assigned at Not on file Legal Sex Male 10:50 AM EDT Gender Identity Not on file Sexual Orientation Not on file Obstetrics History Last Filed Vital Signs Vital Sign Reading Time Taken Comments Blood Pressure 106/64 01/09/2019 11:03 AM EDT Pulse 57 01/09/2019 11:03 AM EDT Temperature - - Respiratory Rate 16 01/09/2019 11:03 AM EDT Oxygen Saturation - - Inhaled Oxygen Concentration - - Weight 92.1 kg (203 lb) 01/09/2019 11:03 AM EDT Height 170.2 cm (5' 7 ) 01/09/2019 11:03 AM EDT Body Mass Index 31.79 01/09/2019 11:03 AM EDT Plan of Treatment Health Maintenance Due Date Last Done Comments Annual Wellness Exam 1980 DTaP/TDaP/Td (1 - Tdap) 1996 Hepatitis B Vaccine (1 of 3 - 19+ 3-dose series) 1996 Cologuard 2022 Colon Cancer Screening 2022 Colonoscopy 2022 FIT 2022 Sigmoidoscopy 2022 Virtual Colonography 2022 COVID-19 Vaccine (1 - 2023-2 5 season) 2024 Influenza Vaccine (#1) 2025 Meningococcal B Vaccine Aged Out No l onger eligible based on patient's age to complete this topic Pneumococcal Vaccine 0-49 Aged Out No longer eligible based on patient's age to complete this topic Insurance AETNA [facility] [place] [address] [facility] [address] Care Teams Broke Beater Relationship Specialty Start Date End Date Jozef Moran MD [address] [place] [id number] PCP - General Family Medicine 02/09/18
== END 2025-03-19 23:59 | disposition home or self-care (01) ==
LOC: RAD 09:38
PROVIDERS: PCP Nurse Practitioner Family; Visit Provider Physician Assistant
DX: M25.562 Pain in left knee (principal)
CPT/HCPCS: 73562

== ENCOUNTER 2025-03-27 09:29 | Outpatient (CLI) | payer OTHER, SELFPAY ==
--- OUTSIDE RECORDS SUMMARY | 2025-03-27 09:32 | XMS_ITS | Clinical Summary ---
Author Organization [facility] Address [address] [place] [address] Care Team Providers Care Safety Specialist Name Role Phone Justyna Wright TRICK RODEO RIDER Primary Care Provider [phone] Allergies No known active allergies Medications Aspirin [...] DAY 05/20/2021 Active Lancets (OneTouch Delica Plus [id number]) [facility] 10/18[facility]2020 Act marck losartan (Cozaar) 50 [...] 2022 Sigmoidoscopy 2022 [facility]-Colorectal Cancer Screening 2022 [id number] Vaccine (1 - 2023- season) 2024 [facility]-Influenza [...] age to complete this topic Insurance AETNA [facility] MEDICAID Care Teams Safety Specialist Relationship Specialty Start Date End Date Justyna Wright APRN [address] [place] [address] PCP - General 06/12/21
--- OUTSIDE RECORDS SUMMARY | 2025-03-27 09:32 | XMS_ITS | Clinical Summary ---
Author Organization [facility] Address [address] [place] [address] Phone Care Team Providers Care Diamond Setter Name Role Phone Jozef Moran MD Primary Care Provider Allergies No known active allergies Medications metoprolol [...] age to complete this topic Insurance AETNA [facility] [place] [address] [facility] [address] Care Teams Diamond Setter Relationship Specialty Start Date End Date Jozef Moran MD [address] [place] [id number] PCP - General Family Medicine 02/09/18
--- NOTE | 2025-03-27 09:45 | MR_ITS ---
FINAL REPORT TECHNIQUE: Multiplanar MR without contrast CLINICAL HISTORY: Left knee Pain. popping and cracking in knee. lateral sided knee pain. knee instability FINDINGS: Articular cartilage: Mild diffuse thinning. No focal defect. Marrow signal: Unremarkable Joint fluid: Small joint effusion. Menisci: Normal morphology without tear Ligaments: Collateral, cruciate and patellofemoral ligaments intact Tendons: Tendinosis of the distal patellar tendon. Tendinitis of the quadriceps tendon with mild partial tear. IMPRESSION: No meniscal or ligamentous injury. Quadriceps tendinitis with partial tear. Reviewed, Interpreted and Dictated by Vinnie Bedoya MD Transcribed by Mar Hernandez Authenticated and [facility]
== END 2025-03-27 23:59 | disposition home or self-care (01) ==
LOC: RAD 09:30
PROVIDERS: PCP Nurse Practitioner Family; Visit Provider Physician Assistant
DX: S76.112A Strain of left quadriceps muscle, fascia and tendon, initial encounter (principal); M76.892 Other specified enthesopathies of left lower limb, excluding foot
CPT/HCPCS: 73721

== ENCOUNTER → 2025-04-01 15:16 | Outpatient (RCR) | payer OTHER, SELFPAY | LOC: PT 15:16 | PROVIDERS: Visit Provider Orthopaedic Surgery | DX: M25.562 Pain in left knee (principal) | CPT/HCPCS: 97760 ==

== ENCOUNTER 2025-05-28 15:31 | Outpatient (CLI) | payer OTHER, SELFPAY ==
--- OUTSIDE RECORDS SUMMARY | 2025-05-28 15:34 | XMS_ITS | Clinical Summary ---
[facility] Address [address] [id number] Care Team Providers Care Shock Absorption Floor Layer Name Role Phone Delores Marian MCMULLEN Primary Care Provider [phone] Social History Tobacco Use Types Packs/Day Years Used Date Smoking Tobacco: Never Assessed Sex and Gender Information Value Date Recorded Sex Assigned at Not on file Legal Sex Male 8:15 AM EST Gender Identity Not on file Sexual Orientation Not on file Plan of Treatment Health Maintenance Due Date Last Done Comments COLON CANCER SCREENING 5 YEAR SIGMOIDOSCOPY [address] COLONOGRAPHY 2022 FECAL OCCULT BLOOD TEST 2022 FIT Testing (1 year) 2022 ANNUAL PHYSICAL 08/31/2024 HEPATITIS C SCREENING 08/31/2024 COVID-19 Vaccine ( season) 2025 INFLUENZA VACCINE 06/12/2025 06/27/2023, , 06/05/2020, Additional history exists COLOGUARD 08/12/2025 08/12/2022 COLORECTAL CANCER SCREENING 08/12/2025 TDAP/TD VACCINES (3 - Td or Tdap) 03/25/2033 03/25/2023, 01/11/2002 Pneumococcal Vaccine 0-49 Aged Out 08/21/2019 No longer eligible based on patient's age to complete this topic Insurance AETNA [facility] Care Teams Shock Absorption Floor Layer Relationship Specialty Start Date End Date Marian Estrella APRN [address] [place] [address] [place] [address] PCP - General Family Medicine 09/25/24
--- OUTSIDE RECORDS SUMMARY | 2025-05-28 15:34 | XMS_ITS | Clinical Summary ---
Author Organization [facility] Address [address] [place] [address] Phone Care Team Providers Care Fleshing Machine Operator Name Role Phone Jozef Moran MD Primary [...] COVID-19 Vaccine (1 - 2023-2 5 season) 2025 Influenza Vaccine (#1) 2025 Meningococcal B Vaccine Aged Out No l onger eligible based on patient's age to complete this topic Pneumococcal Vaccine 0-49 Aged Out No longer eligible based on patient's age to complete this topic Insurance AETNA [facility] [place] [address] [facility] [address] Care Teams Fleshing Machine Operator Relationship Specialty Start Date End Date Jozef Moran MD [address] [place] [phone] PCP - General Family Medicine 02/09/18
--- OUTSIDE RECORDS SUMMARY | 2025-05-28 15:34 | XMS_ITS | Clinical Summary ---
Author Organization Address [address] [place] [address] Care Team Providers Care Supervisor Briar Shop Name Role Phone Justyna Wright CONTRACT SPECIALIST Primary Care Provider [phone] Allergies No known active allergies Medications Aspirin [...] DAY 05/20/2021 Active Lancets (OneTouch Delica Plus [id number]) [facility] 10/18/2020 Act marck losartan (Cozaar) 50 [...] 2022 Sigmoidoscopy 2022 [facility]-Colorectal Cancer Screening 2022 [id number] Vaccine (1 - season) 2025 [facility]-Influenza Vaccine (#1) 05/13/202506/05, 08/23/2018 [facility]-Zoster Vaccines [...] age to complete this topic Insurance AETNA [facility] MEDICAID Care Teams Supervisor Briar Shop Relationship Specialty Start Date End Date Justyna Wright APRN [address] [place] [address] PCP - General 06/12/21
--- NOTE | 2025-05-28 15:38 | XR_ITS ---
FINAL REPORT CLINICAL HISTORY: Assess fecal burden COMPARISON: None FINDINGS: A single view of the abdomen was obtained. The visualized intestinal gas pattern appears unremarkable. No evidence of fecal impaction. No abnormal radiopacities are seen in the abdomen. IMPRESSION: Unremarkable bowel gas pattern. Reviewed, Interpreted and Dictated by Vinnie Bedoya MD Transcribed by Mer Rodriguez Authenticated and [facility]
== END 2025-05-28 23:59 | disposition home or self-care (01) ==
LOC: LAB 15:32
PROVIDERS: PCP Nurse Practitioner Family; Visit Provider Internal Medicine Gastroenterology
DX: K59.00 Constipation, unspecified (principal); R14.0 Abdominal distension (gaseous)
CPT/HCPCS: 74018

== ENCOUNTER 2025-05-29 10:32 | Outpatient (CLI) | payer OTHER, SELFPAY ==
--- OUTSIDE RECORDS SUMMARY | 2025-05-29 10:37 | XMS_ITS | Clinical Summary ---
[facility] Address [address] [id number] Care Team Providers Care Road Worker Name Role Phone Delores Marian MCMULLEN Primary Care Provider [phone] Social History Tobacco Use Types Packs/Day Years [...] age to complete this topic Insurance AETNA [facility] Care Teams Road Worker Relationship Specialty Start Date End Date Marian Estrella APRN [address] [place] [address] [place] [address] PCP - General Family Medicine 09/25/24
--- OUTSIDE RECORDS SUMMARY | 2025-05-29 10:37 | XMS_ITS | Clinical Summary ---
Author Organization [facility] Address [address] [address] Phone Care Team Providers Care Healthcare Economics Consultant Name Role Phone Jozef Moran MD Primary Care Provider [phone] Allergies No known active allergies Medications metoprolol [...] age to complete this topic Insurance AETNA [facility] [place] [address] [facility] [address] Care Teams Healthcare Economics Consultant Relationship Specialty Start Date End Date Jozef Mroan MD [address] [place] [phone] PCP - General Family Medicine 02/09/18
--- OUTSIDE RECORDS SUMMARY | 2025-05-29 10:37 | XMS_ITS | Clinical Summary ---
Author Organization [facility] Address [address] [place] [address] Care Team Providers Care Brusher Machine Name Role Phone Justyna Wright MICROGRINDER OPERATOR Primary Care Provider [phone] Allergies No known active allergies Medications Aspirin [...] DAY 05/20/2021 Active Lancets (OneTouch Delica Plus [id number]) [facility] 10/18/2020 Act marck losartan (Cozaar) 50 [...] 2022 Sigmoidoscopy 2022 [facility]-Colorectal Cancer Screening 2022 [id number] Vaccine (1 - season) 2025 [facility]-Influenza Vaccine [...] age to complete this topic Insurance AETNA [facility] MEDICAID Care Teams Brusher Machine Relationship Specialty Start Date End Date Justyna Wright APRN [address] [place] [address] PCP - General 06/12/21
[2025-05-31 15:13] LABS: Pancreatic Elastase, Fecal 157 (>200)
== END 2025-05-29 23:59 | disposition home or self-care (01) ==
LOC: LAB.DROPOF 10:33
PROVIDERS: PCP Nurse Practitioner Family; Visit Provider Internal Medicine Gastroenterology
DX: K86.81 Exocrine pancreatic insufficiency (principal)
CPT/HCPCS: 82653

== ENCOUNTER 2025-07-31 10:01 | Day surgery (SDC) | payer OTHER, SELFPAY ==
--- NOTE | 2025-07-26 11:54 | EXP.HP ---
History of Present Illness *Admission Date: 07/31/25 *History of present illness: Mr. Raines is a 50-year-old gentleman who is here for diagnostic EGD. He does have a complicated history including alpha gal syndrome, gastroparesis and EPI (exocrine pancreatic insufficiency). He was found to have a fecal elastase below 50 mcg/g. He was started on Creon 1 capsule daily and then this was increased to 2 capsules daily. His alpha gal IgE levels went from 0.66-5.33 and this was felt to be related to the porcine component of the Creon. He did have a tick bite 1-1/2 years ago which led to alpha gal and he is seeing an college instructor. The patient has had his routine colonoscopy care (Dr. Johnny Last) and had a colonoscopy about a year ago in 2023 and had no polyps. His last EGD was 4 years ago. He was placed on metoclopramide (Kayla GRIMM) but states that this cramped him. He is not seen that much improvement with Creon now but did in the beginning. He does take Dexilant for his chronic GERD and has been on this for 10 years. He continues to have heartburn, bloating, belching, gassiness, early satiety and diarrhea. His diarrhea occurs postprandially. He often feels incomplete bowel evacuation. He was placed on Metamucil. He was previously on probiotics. He did have delayed gastric emptying on his gastric emptying study. He has had prior cholecystectomy. The examination is deemed medically necessary for diagnostic EGD. The patient has been seen, interviewed and examined prior to the procedure by both myself and the anesthesia provider. [facility] Disclaimer: The information contained in this section may have been updated after the patient was seen, as this information can be updated by other users. Medical History Alpha-gal syndrome Fatigue JESSICA (obstructive sleep apnea) Hyperlipidemia Palpitations Hypertension Bulging of cervical intervertebral disc Pneumonia due to COVID-19 virus Glaucoma GERD (gastroesophageal reflux disease) Diabetes Surgical History Hx of nasal septoplasty Hx of cholecystectomy Family History Brother Asthma Hyperlipidemia Hypertension Mother Cancer Hyperlipidemia Hypertension Stroke Sister Hypertension Stroke Thyroid disorder Social History Smoking Status: Never smoker second hand exposure: No alcohol intake: never substance use type: denies use current occupational status: employed Travel in the last 8 weeks?: None adopted: No caregiver/support person: No foster care: No household members: spouse housing: house lives independently: Yes marital status: caffeine: No Have you lived/traveled outside US in past 30 days?: No Contact w/someone who lives/traveled outside US past 30 days?: No Exposure to someone with infectious disease in past 14 days?: No Do you have a fever (greater than 100.4 F or 38 C)?: No Have you tested positive for COVID-19?: No Exposed to someone with COVID-19 in past 14 days?: No Do you have a sore throat?: No Do you have a cough?: No Do you have any weakness?: No Do you have any diarrhea?: No Are you experiencing any unusual bleeding?: No Do you have any muscle aches/pain?: No Do you have any abdominal pain?: No Are you experiencing loss of taste or smell?: No Other Medical History Have you received the Flu Vaccine for this season: No Have you received the Pneumonia Vaccine: Yes Review of Systems Review of Systems Review of systems (narrative): Negative *Cardiovascular Comments: Negative *Gastrointestinal Comments: Negative *Genitourinary Comments: Negative *Musculoskeletal Comments: Negative *Neurologic Comments: Negative Meds Home Medications and Allergies Home Medications ?Medication ?Instructions ?Recorded ?Confirmed ?Type blood sugar diagnostic (PEX Card #10 ea 07/07/23 07/31/25 History Ultra Test strips) dexlansoprazole 60 mg 60 mg PO DAILY 07/07/23 07/31/25 History capsule,biphase delayed release (Dexilant) lancets 33 gauge (i-NalysisToOpt[facility] labs Delica #100 ea 07/07/23 07/31/25 History Plus Lancet) latanoprost 0.005 % eye drops 1 drp Eye-Both BID 07/07/23 07/31/25 History nystatin 100,000 unit/gram topical 100,000 unit topical DAILY 07/07/23 07/31/25 History powder (Nystop) testosterone (AndroGel) 4 pump topical DAILY 07/07/23 07/31/25 History epinephrine 0.3 mg/0.3 mL 0.3 ml IM ONCE PRN allergies 11/17/23 07/31/25 History injection, auto-injector lancing device with lancets kit #1 ea 01/26/24 07/31/25 History (i-NalysisTouch Delica Plus Lancing Device kit) cholecalciferol (vitamin D3) 1,250 1,250 mcg PO WEEKLY 02/27/24 07/31/25 History mcg (50,000 unit) capsule dapagliflozin propaned 5 5 - 1,000 tab PO BID 08/30/24 07/31/25 History mg-metformin ER 1,000 mg tablet, ext rel 24hr (Xigduo XR) psyllium husk 3.4 gram/5.4 gram 1 tbsp PO DAILY 11/28/24 07/31/25 History oral powder (Metamucil) blood glucose control, normal #1 ea 12/18/24 07/31/25 History (i-NalysisTouch Verio Mid Control solution) fexofenadine 180 mg tablet 180 mg PO DAILY 12/18/24 07/31/25 History metoclopramide HCl 15 mg/spray 1 spray intranasal QID 8 weeks 05/28/25 07/31/25 Rx nasal spray with pump (Gimoti) #9.8 mL aspirin 81 mg chewable tablet 1 tab PO DAILY #90 tabs 06/19/25 07/31/25 Rx losartan 50 mg tablet 50 mg PO DAILY #90 tabs 06/19/25 07/31/25 Rx metoprolol succinate 50 mg 50 mg PO DAILY #90 tabs 06/19/25 07/31/25 Rx tablet,extended release 24 hr New Prescriptions to Start Prescriptions: Allergies Allergy/AdvReac Type Severity Reaction Status Date / Time omeprazole (From Prilosec) Allergy Mild Hives Verified 07/31/25 10:43 Exam *Routine HEENT Exam Head: Present normocephalic Eye: Present EOMI and PERRL ENT: Present mucous membranes moist *Routine Neck Exam Neck: Present supple *Routine Respiratory Exam Respiratory: Present CTA bilaterally *Routine Cardiovascular Exam Cardiovascular: Present RRR *Routine Abdominal Exam Abdominal: Present soft and normoactive bowel sounds; Absent tenderness *Routine Rectal Exam Rectal:: deferred *Routine Genitalia Exam Genitalia:: deferred *Routine Extremities Exam Extremities: Absent cyanosis, clubbing or edema *Routine Skin Exam Skin: Present warm; Absent rash *Routine Neurological Exam Neurological: Present alert and oriented X3 Assessment and Plan *Assessment and plan (1) Gastroparesis: Status: Acute Category: Medical Code(s): K31.84 - Gastroparesis (2) Bloating: Status: Acute Category: Medical Code(s): R14.0 - Abdominal distension (gaseous) (3) Heartburn: Status: Acute Category: Medical Code(s): R12 - Heartburn (4) Belching: Status: Acute Category: Medical Code(s): R14.2 - Eructation (5) Exocrine pancreatic insufficiency: Status: Acute Category: Medical Code(s): K86.81 - Exocrine pancreatic insufficiency (6) Chronic GERD: Status: Acute Category: Medical Code(s): K21.9 - Gastro-esophageal reflux disease without esophagitis (7) Early satiety: Status: Acute Category: Medical Code(s): R68.81 - Early satiety (8) Diarrhea: Status: Acute Category: Medical Code(s): R19.7 - Diarrhea, unspecified Plan A/P: 1. Heartburn/chronic GERD with bloating, belching, early satiety and chronic diarrhea is the preprocedural diagnosis. He does have a history of EPI and gastroparesis. The patient will be anesthetized/sedated using MAC sedation. The patient has been seen and examined. Cardiac and lung assessment prior to the examination is stable. Proceed with planned diagnostic EGD.
[2025-07-30 13:07] VITALS: BMI 33.0
--- NOTE | 2025-07-31 06:55 | P.PCN_ITS ---
[facility] Procedure Note Date: 07/31/25 Procedure Note:: Upper Endoscopy Procedure Report: Esophagogastroduodenoscopy with cold biopsies Endoscopost: Jacques Booker II, MD Referring Physician: SIRISHA Bailey Date of Procedure: July 31, 2025 Equipment: Olympus GIF-1100 standard upper endoscope Sedation: MAC sedation Indications: Mr. Raines is a 50-year-old gentleman who is here for diagnostic EGD. He does have a complicated history including alpha gal syndrome, gastroparesis and EPI (exocrine pancreatic insufficiency). He was found to have a fecal elastase below 50 mcg/g. He was started on Creon 1 capsule daily and then this was increased to 2 capsules daily. His alpha gal IgE levels went from 0.66 to 5.33 and this was felt to be related to the porcine component of the Creon. The only other enzyme product is Nortase (made in [place]) that does not have porcine component. I did recommend Gimoti treatment. He did have a tick bite 1-1/2 years ago which led to alpha gal and he is seeing an geographic information scientist. The patient has had his routine colonoscopy care (Dr. Johnny Last) and had a colon oscopy about a year ago in 2023 and had no polyps. His last EGD was 4 years ago. He was placed on metoclopramide (Kayla GRIMM) but states that this cramped him. He has not seen that much improvement with Creon now but did in the beginning. He does take Dexilant for his chronic GERD and has been on this for 10 years. He continues to have heartburn, bloating, belching, gassiness, early satiety and diarrhea. His diarrhea occurs postprandially. He often feels incomplete bowel evacuation. He was placed on Metamucil. He was previously on probiotics. He did have delayed gastric emptying on his gastric emptying study. He has had prior cholecystectomy. The examination is deemed medically necessary for diagnostic EGD. Procedure: Prior to the procedure, a history and physical exam was performed, and patient's medications and allergies were reviewed. The risks, benefits and alternatives of the sedation and procedure were discussed with the patient. All questions were answered and informed consent was obtained. The patient was brought to the procedure room. Patient identification and proposed procedure were verified by the physician and the nurse. The patient was placed in a left lateral decubitus position and the scope was passed under direct vision. Throughout the procedure, the patient's blood pressure, pulse, and oxygen saturations were monitored continuously. The upper GI endoscopy was accomplished without difficulty. The patient tolerated the procedure well. Findings: The scope was passed directly into the upper esophagus and advanced to the third portion of the duodenum. The post bulbar duodenum, ampulla and duodenal bulb were normal with normal mucosa and conniventes. 2 cold biopsies were taken from the second portion of the duodenum for the disaccharidase assay. The scope was withdrawn through a normal duodenal bulb and pylorus into the stomach. There was a pyloric channel polyp (6 mm) removed via cold biopsy forceps. There was some linear nodular reactive gastropathy of the antrum. Cold biopsies were taken from the incisura. The body and fundus of the stomach were normal. Upon retroflexion there was a very small sliding 1 to 2 cm hiatal hernia. The scope was then withdrawn into the esophagus. There was no evidence of reflux esophagitis or Burger's. There were strong tertiary contractions and evidence of mild esophageal dysmotility. There appeared to be very faint esophageal varices. The remainder of the esophageal mucosa was normal. Impression: 1. Nonerosive GERD with very small sliding 1 to 2 cm hiatal hernia 2. Antral nodular reactive gastropathy 3. Pyloric channel polyp (6 mm) removed Plan: I will follow-up the biopsies and disaccharidase assay. I will review his symptoms and findings and we will discuss treatment options.
[2025-07-31 10:44] VITALS: BP 151/95; PULSE 81; RESP 18; TEMP 36.2; O2SAT 100
[2025-07-31] MEDS: LACTATED RINGERS 1000ML 1,000 ML 50 ML IV (10:51)
[2025-07-31 10:58] LABS: POC Glucose,Bedside 95 gm/dL (70-110)
--- NOTE | 2025-07-31 10:58 | EXP.ANES.CKL ---
[facility] Disclaimer: The information contained in this section may have been updated after the patient was seen, as this information can be updated by other users. Medical History Alpha-gal syndrome Fatigue JESSICA (obstructive sleep apnea) Hyperlipidemia Palpitations Hypertension Bulging of cervical intervertebral disc Pneumonia due to COVID-19 virus Glaucoma GERD (gastroesophageal reflux disease) Diabetes Surgical History Hx of nasal septoplasty Hx of cholecystectomy Family History Brother Asthma Hyperlipidemia Hypertension Mother Cancer Hyperlipidemia Hypertension Stroke Sister Hypertension Stroke Thyroid disorder Social History Smoking Status: Never smoker second hand exposure: No alcohol intake: never substance use type: denies use current occupational status: employed Travel in the last 8 weeks?: None adopted: No caregiver/support person: No foster care: No household members: spouse housing: house lives independently: Yes marital status: caffeine: No Have you lived/traveled outside [place] in past 30 days?: No Contact w/someone who lives/traveled outside [place] past 30 days?: No Exposure to someone with infectious disease in past 14 days?: No Do you have a fever (greater than 100.4 F or 38 C)?: No Have you tested positive for COVID-19?: No Exposed to someone with COVID-19 in past 14 days?: No Do you have a sore throat?: No Do you have a cough?: No Do you have any weakness?: No Do you have any diarrhea?: No Are you experiencing any unusual bleeding?: No Do you have any muscle aches/pain?: No Do you have any abdominal pain?: No Are you experiencing loss of taste or smell?: No [facility] Anesthesia Checklist Patient Identification Patient Identification: Arm Band and Verbal (Name & ) Structural Data Admitted From: Home Planned Operative Procedure/s: EGD Consent for Planned Operative Procedure(s) Verified: Yes Verified Documents: Surgical Consent NPO Status Verified Time NPO: 00:00 Additional verifications Fingerstick Blood Glucose: 93 Anesthesia Reactions: No Hx Blood Transfusions: No Blood Transfusion Reaction: No Airway Assessment Mallampati Score:: Class II C-Spine Mobility Assessed: Yes TMJ Mobility Assessed: Yes Dentition: Good Dentition Neurological Assessment Level of Consciousness: Alert and Appropriate Hx Seizures: No Numbness or tingling in extremities: No Anesthesia Plan Anesthesia Risk discussed: Yes Anesthesia Plan: Verified ASA Class: II Anesthesia Type: MAC
[2025-07-31 12:18] VITALS: BP 122/85; PULSE 75; RESP 16; TEMP 36.4; O2SAT 96
[2025-07-31 12:28] VITALS: BP 117/72; PULSE 69; RESP 16; TEMP 36.6; O2SAT 97
[2025-07-31 12:38] VITALS: BP 121/70; PULSE 70; RESP 16; TEMP 36.6; O2SAT 98
[2025-07-31 12:48] VITALS: BP 129/79; PULSE 69; RESP 16; TEMP 36.6; O2SAT 98
[2025-08-05 16:32] LABS: Interpretation Notes (.); Lactase 4.82 (>/= 14.0); Maltase 97.85 (>/= 110.0); Palatinase 8.52 (>/= 8.5); Reference Notes (.); Sucrase 25.2 (>/= 25.0)
== END 2025-07-31 11:48 | disposition home or self-care (01) ==
PROVIDERS: PCP Nurse Practitioner Family; Visit Provider Internal Medicine Gastroenterology
PROC: 0DJ08ZZ Inspection of Upper Intestinal Tract, Via Natural or Artificial Opening Endoscopic (ICD-10-PCS; CPT 43239; principal; 2025-07-31 11:30)
DX: K25.3 Acute gastric ulcer without hemorrhage or perforation (principal); K31.89 Other diseases of stomach and duodenum; K44.9 Diaphragmatic hernia without obstruction or gangrene; K22.4 Dyskinesia of esophagus; K29.50 Unspecified chronic gastritis without bleeding; K31.7 Polyp of stomach and duodenum; K21.9 Gastro-esophageal reflux disease without esophagitis; K86.81 Exocrine pancreatic insufficiency; K31.84 Gastroparesis; I10 Essential (primary) hypertension; E11.9 Type 2 diabetes mellitus without complications; E78.5 Hyperlipidemia, unspecified; Z79.82 Long term (current) use of aspirin; Z79.84 Long term (current) use of oral hypoglycemic drugs; Z91.014 Allergy to mammalian meats; Z88.8 Allergy status to other drugs, medicaments and biological substances
CPT/HCPCS: 43239; 82657; 82962; J2003; J2704; J7120